=== PATIENT | female | born 1980 | race Caucasian/White ===

== ENCOUNTER 2017-01-17 10:20 | Emergency (ER) | payer BC ==
[2017-01-17] MEDS ORDERED: Ibuprofen TAB* 400 MG PO ONE (12:04)
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
[2017-01-17 13:39] VITALS: BP 102/54
== END 2017-01-17 13:38 | disposition home or self-care (01) ==
LOC: ED 10:20
DX: S00.83XA Contusion of other part of head, initial encounter (principal); S60.221A Contusion of right hand, initial encounter; S00.81XA Abrasion of other part of head, initial encounter; R11.2 Nausea with vomiting, unspecified; F17.210 Nicotine dependence, cigarettes, uncomplicated; Y09 Assault by unspecified means; Y93.9 Activity, unspecified; Y92.9 Unspecified place or not applicable
CPT/HCPCS: 70450; 99283; A9270-GY